=== PATIENT | male | born 1965 | race African-American/Black ===

== ENCOUNTER 2016-12-01 11:12 | Emergency (ER) | payer MEDICAID, OTHER ==
[~2016-12-01] VITALS: Ht 175.3 cm; Wt 81.4 kg
[2016-12-01] MEDS ORDERED: KETOROLAC TROMETHAMINE 60 MG/2 ML VIAL IM ONE (11:45)
[2016-12-01] MEDS ORDERED: METHOCARBAMOL 500 MG TABLET PO ONE (11:45)
[2016-12-01 12:38] VITALS: BP 130/80
== END 2016-12-01 12:48 | disposition home or self-care (01) ==
LOC: EMS 11:15
DX: S16.1XXA Strain of muscle, fascia and tendon at neck level, initial encounter (principal); G89.29 Other chronic pain; X58.XXXA Exposure to other specified factors, initial encounter; Y93.G3 Activity, cooking and baking; Y92.89 Other specified places as the place of occurrence of the external cause; Y99.8 Other external cause status
CPT/HCPCS: 96372; 99283; J1885

== ENCOUNTER 2018-05-15 16:39 | Emergency (ER) | payer OTHER ==
[~2018-05-15] VITALS: Ht 175.3 cm; Wt 90.9 kg
[2018-05-15] MEDS ORDERED: LIDOCAINE 5% TRANSDERMAL PATCH TD ONE (17:45)
[2018-05-15] MEDS ORDERED: KETOROLAC TROMETHAMINE 30 MG/ML VIAL IM ONE (17:45)
[2018-05-15 19:01] VITALS: BP 125/85
== END 2018-05-15 19:06 | disposition home or self-care (01) ==
LOC: EMS 16:39
DX: S39.012A Strain of muscle, fascia and tendon of lower back, initial encounter (principal); W01.0XXA Fall on same level from slipping, tripping and stumbling without subsequent striking against object, initial encounter; Y93.89 Activity, other specified; Y92.89 Other specified places as the place of occurrence of the external cause; Y99.8 Other external cause status
CPT/HCPCS: 96372; 99283; J1885

== ENCOUNTER 2019-10-07 15:03 | Emergency (ER) | payer OTHER ==
[~2019-10-07] VITALS: Ht 175.3 cm; Wt 81.8 kg
[2019-10-07] MEDS ORDERED: CYCLOBENZAPRINE HCL 10 MG TABLET PO ONE (16:00)
[2019-10-07] MEDS ORDERED: SODIUM CHLORIDE 0.9% 1,000 ML IV ONE (16:15)
[2019-10-07] MEDS ORDERED: ONDANSETRON HCL 4 MG/2 ML VIAL IVP ONE (16:15)
[2019-10-07] MEDS ORDERED: METHOCARBAMOL 100 MG/ML 10 ML VIAL IVP ONE (17:15)
[2019-10-07] MEDS ORDERED: KETOROLAC TROMETHAMINE 30 MG/ML VIAL IVP ONE (17:15)
[2019-10-07 17:28] VITALS: BP 131/78
== END 2019-10-07 18:01 | disposition home or self-care (01) ==
LOC: EMS 15:06
DX: R51 Headache (principal); M54.2 Cervicalgia; R42 Dizziness and giddiness; R11.0 Nausea; H93.12 Tinnitus, left ear
CPT/HCPCS: 70450; 96361; 96374; 96375; 99284; J1885; J2405; J2800; J7030